=== PATIENT | female | born 1985 | race Caucasian/White ===

== ENCOUNTER 2020-08-05 16:38 | Outpatient (NON) | payer BC, SELFPAY ==
[2020-08-06 18:22] LABS: SARS-CoV-2 RNA PCR Negative
== END 2020-08-05 16:39 ==
LOC: ANHCOVIDDT 16:39
PROVIDERS: PCP Registered Nurse; Visit Provider Registered Nurse
DX: J02.9 Acute pharyngitis, unspecified (principal); R51.9 Headache, unspecified; Z20.828 Contact with and (suspected) exposure to other viral communicable diseases
CPT/HCPCS: 87635; C9803; U0003

== ENCOUNTER 2024-11-06 08:50 | Outpatient (CLI) | payer BC, SELFPAY | END 2024-11-06 08:51 | disposition home or self-care (01) | LOC: MICIMG 08:51 | PROVIDERS: PCP Registered Nurse; Visit Provider Nurse Practitioner | DX: N64.4 Mastodynia (principal) | CPT/HCPCS: 77062; 77066; G0279 ==

== ENCOUNTER 2025-04-25 15:21 | Outpatient (CLI) | payer BC, SELFPAY ==
--- NOTE | ~2025-04-25 | US_ITS ---
US thyroid INDICATION: Left thyroid nodule follow-up TECHNIQUE: Real-time sonographic images of the thyroid gland were obtained. COMPARISON: Ultrasound dated 08/05/2017 FINDINGS: The right thyroid lobe measures 0.2 cm. The left thyroid lobe measures 5.6 x 1 x 1.5 cm. No discrete mass identified in the left lobe. In the right lobe there is an oval solid hypoechoic wider than tall smoothly marginated mass without echogenic foci measuring 4 x 2 x 3 mm, likely benign. Normal vascular flow is present. IMPRESSION: 1. Likely benign 4 mm right thyroid nodule, TR 4. No follow-up required. Reviewed, dictated and finalized at location O.
== END 2025-04-25 15:22 | disposition home or self-care (01) ==
LOC: MICIMG 15:23
PROVIDERS: PCP Registered Nurse; Visit Provider Registered Nurse
DX: E04.1 Nontoxic single thyroid nodule (principal)
CPT/HCPCS: 76536